=== PATIENT | female | born 1950 | race Caucasian/White ===

== ENCOUNTER 2019-10-07 13:41 | Inpatient (IN) ==
[2019-10-07] MEDS ORDERED: NS 0.9% 1000 ml BAG 1,000 ML IV ONE ×2 (13:53→14:07)
[2019-10-07 14:01] LABS: Hematocrit 40 % (35-47); Hemoglobin 13.5 g/dL (12.0-16.0); Mean Corpuscular HGB Conc 34 g/dL (31-36); Mean Corpuscular Hemoglobin 32 pg (27-31); Mean Corpuscular Volume 96 fL (80-97); Mean Platelet Volume 7.9 fL (7.4-10.4); Platelet Count 157 10^3/uL (150-450); Red Cell Distribution Width 14 % (10-15); White Blood Count 15.3 10^3/uL (3.5-10.8)
[2019-10-07 14:41] LABS: ABS Lymphocytes 0.5 10^3/ul (1.0-4.8); ABS Monocytes 0.8 10^3/ul (0-0.8); Lymphocyte % 3.6 %
[2019-10-07 14:47] LABS: Albumin 4.3 g/dL (3.2-5.2); Albumin/Globulin Ratio 1.6 (1-3); BUN/Creatinine Ratio 14.9 (8-20); Calcium 9.7 mg/dL (8.6-10.3); EGFR African American 33.7 (>60); EGFR Non-African American 27.9 (>60); Globulin 2.7 g/dL (2-4); Magnesium 2.2 mg/dL (1.9-2.7); Total Bilirubin 1.5 mg/dL (0.2-1.0)
[2019-10-07 14:50] LABS: Urine Appearance Cloudy; Urine Bilirubin Negative (Negative); Urine Blood 3+ (Negative); Urine Color Amber; Urine Glucose Negative (Negative); Urine Ketones 1+ (Negative); Urine Nitrite Negative (Negative); Urine Protein 2+(100 mg/dL) (Negative); Urine Urobilinogen Negative (Negative)
[2019-10-07 15:21] LABS: Urine Bacteria Absent (Absent); Urine Granular Casts Present (Absent); Urine Red Blood Cell Trace(0-2/hpf) (Absent); Urine Squamous Epithelial Cell Present (Absent); Urine White Blood Cell Absent (Absent)
[2019-10-07] MEDS ORDERED: NS 0.9% 1000 ml BAG 1,000 ML IV SCH (15:30)
[2019-10-07] MEDS: Enoxaparin 40 MG/0.4 ML SYR SUBCUT SCH (19:36)
[2019-10-08 09:42] LABS: Hematocrit 40 % (35-47); Hemoglobin 13.5 g/dL (12.0-16.0); Mean Corpuscular HGB Conc 34 g/dL (31-36); Mean Corpuscular Hemoglobin 32 pg (27-31); Mean Corpuscular Volume 95 fL (80-97); Mean Platelet Volume 7.8 fL (7.4-10.4); Platelet Count 135 10^3/uL (150-450); Red Blood Count 4.18 10^6 /uL (3.70-4.87); Red Cell Distribution Width 14 % (10-15); White Blood Count 10.3 10^3/uL (3.5-10.8)
[2019-10-08 09:53] LABS: BUN/Creatinine Ratio 23.3 (8-20); Calcium 9.2 mg/dL (8.6-10.3); EGFR African American 56.4 (>60); EGFR Non-African American 46.6 (>60); Potassium 3.9 mmol/L (3.5-5.0)
[2019-10-08] MEDS ORDERED: Lactated Ringers 1000 ml BAG 1,000 ML IV SCH (11:00)
[2019-10-08] MEDS: Enoxaparin 40 MG/0.4 ML SYR SUBCUT SCH (17:12)
[2019-10-09] MEDS: Enoxaparin 40 MG/0.4 ML SYR SUBCUT SCH (18:23)
[2019-10-10] MEDS: Enoxaparin 40 MG/0.4 ML SYR SUBCUT SCH (18:38)
[2019-10-11] MEDS: Enoxaparin 40 MG/0.4 ML SYR SUBCUT SCH (17:49)
[2019-10-12] MEDS: Enoxaparin 40 MG/0.4 ML SYR SUBCUT SCH (18:44)
[2019-10-13 16:37] LABS: Free Testosterone ng/dl 0.37 ng/dL (0.06-0.84)
[2019-10-13] MEDS: Enoxaparin 40 MG/0.4 ML SYR SUBCUT SCH (17:21)
[2019-10-13] MEDS ORDERED: Magnesium Hydroxide LIQ 30 ML UDC PO ONE (20:28)
[2019-10-14] MEDS ORDERED: Magnesium Hydroxide LIQ 30 ML UDC PO PRN (10:22)
[2019-10-14] MEDS ORDERED: Senna TAB 8.6 mg TAB PO PRN (10:22)
[2019-10-14] MEDS: Enoxaparin 40 MG/0.4 ML SYR SUBCUT SCH (17:15)
[2019-10-14] MEDS ORDERED: Alteplase (CATHFLO) 2 MG VIAL ONE (22:00)
[2019-10-15] MEDS: Polyethylene Glycol 3350 17 GM PACKET PO SCH (10:38)
[2019-10-15] MEDS: Enoxaparin 40 MG/0.4 ML SYR SUBCUT SCH (17:17)
[2019-10-16] MEDS: Polyethylene Glycol 3350 17 GM PACKET PO SCH (10:36)
[2019-10-16 13:12] LABS: Urine Appearance Cloudy; Urine Bilirubin Negative (Negative); Urine Blood Negative (Negative); Urine Color Yellow; Urine Glucose Negative (Negative); Urine Ketones Negative (Negative); Urine Nitrite Negative (Negative); Urine Protein Negative (Negative); Urine Specific Gravity 1.018 (1.010-1.030); Urine Urobilinogen Negative (Negative)
[2019-10-16] MEDS: Enoxaparin 40 MG/0.4 ML SYR SUBCUT SCH (17:02)
[2019-10-17] MEDS: Polyethylene Glycol 3350 17 GM PACKET PO SCH (08:33)
[2019-10-17] MEDS: Enoxaparin 40 MG/0.4 ML SYR SUBCUT SCH (16:05)
[2019-10-18] MEDS: Polyethylene Glycol 3350 17 GM PACKET PO SCH (07:58)
[2019-10-18] MEDS: Enoxaparin 40 MG/0.4 ML SYR SUBCUT SCH (16:48)
[2019-10-19 06:36] LABS: Mean Platelet Volume 7.3 fL (7.4-10.4); Platelet Count 187 10^3/uL (150-450)
[2019-10-19] MEDS: Polyethylene Glycol 3350 17 GM PACKET PO SCH (08:44)
[2019-10-19] MEDS: Enoxaparin 40 MG/0.4 ML SYR SUBCUT SCH (17:23)
[2019-10-20] MEDS: Polyethylene Glycol 3350 17 GM PACKET PO SCH (09:40)
[2019-10-20] MEDS: Enoxaparin 40 MG/0.4 ML SYR SUBCUT SCH (16:51)
[2019-10-21 07:43] LABS: EGFR Non-African American 83.5 (>60)
[2019-10-21] MEDS: Polyethylene Glycol 3350 17 GM PACKET PO SCH (08:44)
[2019-10-21] MEDS: Enoxaparin 40 MG/0.4 ML SYR SUBCUT SCH (16:46)
[2019-10-22] MEDS: Polyethylene Glycol 3350 17 GM PACKET PO SCH (08:27)
[2019-10-22] MEDS: Enoxaparin 40 MG/0.4 ML SYR SUBCUT SCH (19:11)
[2019-10-23] MEDS: Polyethylene Glycol 3350 17 GM PACKET PO SCH (08:56)
[2019-10-23] MEDS: Enoxaparin 40 MG/0.4 ML SYR SUBCUT SCH (16:43)
[2019-10-24] MEDS: Polyethylene Glycol 3350 17 GM PACKET PO SCH (12:05)
[2019-10-24] MEDS: Enoxaparin 40 MG/0.4 ML SYR SUBCUT SCH (18:19)
[2019-10-25] MEDS: Polyethylene Glycol 3350 17 GM PACKET PO SCH (08:41)
[2019-10-25] MEDS: Enoxaparin 40 MG/0.4 ML SYR SUBCUT SCH (16:54)
[2019-10-26] MEDS: Polyethylene Glycol 3350 17 GM PACKET PO SCH (08:17)
[2019-10-26] MEDS: Enoxaparin 40 MG/0.4 ML SYR SUBCUT SCH (17:29)
[2019-10-27] MEDS: Polyethylene Glycol 3350 17 GM PACKET PO SCH (09:03)
[2019-10-27] MEDS: Enoxaparin 40 MG/0.4 ML SYR SUBCUT SCH (17:10)
[2019-10-28] MEDS: Polyethylene Glycol 3350 17 GM PACKET PO SCH (07:34)
[2019-10-28] MEDS: Enoxaparin 40 MG/0.4 ML SYR SUBCUT SCH (17:21)
[2019-10-29] MEDS ORDERED: Polyethylene Glycol 3350 17 GM PACKET PO PRN (02:11)
[2019-10-29 07:11] LABS: ABS Eosinophils 0.1 10^3/ul (0-0.6); ABS Monocytes 0.6 10^3/ul (0-0.8); Eosinophil % 1.3 %; Hematocrit 38 % (35-47); Hemoglobin 13.3 g/dL (12.0-16.0); Lymphocyte % 11.8 %; Mean Corpuscular HGB Conc 35 g/dL (31-36); Mean Corpuscular Hemoglobin 34 pg (27-31); Mean Corpuscular Volume 95 fL (80-97); Platelet Count 166 10^3/uL (150-450); Red Blood Count 3.97 10^6 /uL (3.70-4.87); Red Cell Distribution Width 14 % (10-15); White Blood Count 8.3 10^3/uL (3.5-10.8)
[2019-10-29 07:20] LABS: BUN/Creatinine Ratio 23.7 (8-20); EGFR African American 91.8 (>60); EGFR Non-African American 75.9 (>60); Magnesium 1.8 mg/dL (1.9-2.7); Potassium 3.8 mmol/L (3.5-5.0)
[2019-10-29] MEDS ORDERED: Magnesium Sulfate 2 gm BAG 2 GM/50 ML BAG IVPB ONE (09:30)
[2019-10-29] MEDS: Enoxaparin 40 MG/0.4 ML SYR SUBCUT SCH (17:38)
[2019-10-29 18:33] LABS: Total Bilirubin 0.6 mg/dL (0.2-1.0)
[2019-10-30 09:08] LABS: Magnesium 1.9 mg/dL (1.9-2.7)
[2019-10-30] MEDS: Enoxaparin 40 MG/0.4 ML SYR SUBCUT SCH (16:31)
[2019-10-31] MEDS: Enoxaparin 40 MG/0.4 ML SYR SUBCUT SCH (17:31)
[2019-11-01] MEDS: Enoxaparin 40 MG/0.4 ML SYR SUBCUT SCH (17:35)
[2019-11-02 12:07] LABS: Urine Appearance Turbid; Urine Bilirubin Negative (Negative); Urine Blood 3+ (Negative); Urine Color Yellow; Urine Glucose Negative (Negative); Urine Ketones Negative (Negative); Urine Nitrite Negative (Negative); Urine Protein 2+(100 mg/dL) (Negative); Urine Specific Gravity 1.021 (1.010-1.030); Urine Urobilinogen Positive (Negative)
[2019-11-02 12:10] LABS: Urine Bacteria Absent (Absent); Urine Red Blood Cell 3+(>10/hpf) (Absent); Urine Squamous Epithelial Cell Present (Absent); Urine White Blood Cell 3+(>20/hpf) (Absent)
[2019-11-02] MEDS: Enoxaparin 40 MG/0.4 ML SYR SUBCUT SCH (17:08)
[2019-11-02 20:19] LABS: ABS Eosinophils 0.2 10^3/ul (0-0.6); ABS Lymphocytes 1.5 10^3/ul (1.0-4.8); ABS Monocytes 0.7 10^3/ul (0-0.8); Eosinophil % 2.8 %; Hematocrit 35 % (35-47); Hemoglobin 12.1 g/dL (12.0-16.0); Lymphocyte % 23.7 %; Mean Corpuscular HGB Conc 34 g/dL (31-36); Mean Corpuscular Hemoglobin 33 pg (27-31); Mean Corpuscular Volume 96 fL (80-97); Mean Platelet Volume 7.3 fL (7.4-10.4); Nucleated Red Blood Cells % 0.1; Platelet Count 141 10^3/uL (150-450); Red Blood Count 3.71 10^6 /uL (3.70-4.87); Red Cell Distribution Width 14 % (10-15); White Blood Count 6.2 10^3/uL (3.5-10.8)
[2019-11-03] MEDS: Enoxaparin 40 MG/0.4 ML SYR SUBCUT SCH (17:36)
[2019-11-04] MEDS: Enoxaparin 40 MG/0.4 ML SYR SUBCUT SCH (16:59)
[2019-11-05] MEDS: Enoxaparin 40 MG/0.4 ML SYR SUBCUT SCH (16:57)
[2019-11-06 06:59] LABS: EGFR Non-African American 83.5 (>60)
[2019-11-06] MEDS: Enoxaparin 40 MG/0.4 ML SYR SUBCUT SCH (16:34)
[2019-11-06] MEDS: Amoxicillin/Clavul 500/125 TAB (Augmentin 500 mg tab) PO SCH (21:33)
[2019-11-07] MEDS: Amoxicillin/Clavul 500/125 TAB (Augmentin 500 mg tab) PO SCH ×2 (09:08→21:41)
[2019-11-07] MEDS ORDERED: Enoxaparin 40 MG/0.4 ML SYR SUBCUT SCH (21:00)
[2019-11-08 07:54] VITALS: BP 150/72
[2019-11-08] MEDS: Amoxicillin/Clavul 500/125 TAB (Augmentin 500 mg tab) PO SCH (08:03)
== END 2019-11-08 14:30 | DRG 885 ==
LOC: ED 13:41 → MED 13:41
PROVIDERS: ADMIT Internal Medicine; ATTEND Internal Medicine

== ENCOUNTER 2020-03-06 01:06 | Inpatient (IN) ==
[2020-03-06 08:58] LABS: ABS Basophils 0.1 10^3/ul (0-0.2); ABS Eosinophils 0.1 10^3/ul (0-0.6); ABS Monocytes 0.4 10^3/ul (0-0.8); ABS Neutrophils 4.8 10^3/ul (1.5-7.7); Eosinophil % 1.6 %; Hematocrit 40 % (35-47); Hemoglobin 13.6 g/dL (12.0-16.0); Mean Corpuscular HGB Conc 34 g/dL (31-36); Mean Corpuscular Hemoglobin 32 pg (27-31); Mean Corpuscular Volume 93 fL (80-97); Mean Platelet Volume 7.7 fL (7.4-10.4); Platelet Count 160 10^3/uL (150-450); Red Blood Count 4.29 10^6 /uL (3.70-4.87); Red Cell Distribution Width 14 % (10-15); White Blood Count 6.5 10^3/uL (3.5-10.8)
[2020-03-06 09:05] LABS: INR 1.07 (0.82-1.09)
[2020-03-06 09:14] LABS: Albumin 3.8 g/dL (3.2-5.2); Albumin/Globulin Ratio 1.5 (1-3); BUN/Creatinine Ratio 15.9 (8-20); C Reactive Protein 1.13 mg/L (<8.01); Calcium 8.8 mg/dL (8.6-10.3); EGFR African American 102.4 (>60); EGFR Non-African American 84.6 (>60); Globulin 2.5 g/dL (2-4); Potassium 3.1 mmol/L (3.5-5.0); Total Bilirubin 0.8 mg/dL (0.2-1.0); Total Protein 6.3 g/dL (6.4-8.9)
[2020-03-06] MEDS ORDERED: Morphine 2 MG/ML SYRINGE IV PRN (13:13)
[2020-03-06] MEDS ORDERED: Ondansetron 4 mg VIAL 2 MG/ML 2 ml VIAL IV PRN (13:18)
[2020-03-06] MEDS ORDERED: Labetalol IV 5 MG/ML 20 ml VIAL IV PUSH PRN (13:47)
[2020-03-06] MEDS: KCL 20 MEQ/100 ML IVPREMIX 20 MEQ/100 ML BAG IV SCH ×3 (14:57→21:14)
[2020-03-06 18:22] LABS: Urine Appearance Cloudy; Urine Bilirubin Negative (Negative); Urine Blood Negative (Negative); Urine Color Yellow; Urine Glucose Negative (Negative); Urine Ketones Negative (Negative); Urine Nitrite Negative (Negative); Urine Protein Negative (Negative); Urine Specific Gravity 1.009 (1.010-1.030); Urine Urobilinogen Negative (Negative)
[2020-03-06] MEDS: NS 0.9% 1000 ml BAG 1,000 ML IV SCH (20:39)
[2020-03-06] MEDS: Heparin 5000 UNITS/ML 1 mL VIAL SUBCUT SCH (22:00)
[2020-03-07 05:03] LABS: ABS Basophils 0.1 10^3/ul (0-0.2); ABS Eosinophils 0.2 10^3/ul (0-0.6); ABS Lymphocytes 1.1 10^3/ul (1.0-4.8); ABS Monocytes 0.5 10^3/ul (0-0.8); ABS Neutrophils 4.6 10^3/ul (1.5-7.7); Eosinophil % 2.6 %; Hematocrit 40 % (35-47); Hemoglobin 13.6 g/dL (12.0-16.0); Lymphocyte % 17.8 %; Mean Corpuscular HGB Conc 34 g/dL (31-36); Mean Corpuscular Hemoglobin 31 pg (27-31); Mean Corpuscular Volume 93 fL (80-97); Mean Platelet Volume 7.4 fL (7.4-10.4); Nucleated Red Blood Cells % 0.1; Platelet Count 150 10^3/uL (150-450); Red Blood Count 4.34 10^6 /uL (3.70-4.87); Red Cell Distribution Width 14 % (10-15); White Blood Count 6.5 10^3/uL (3.5-10.8)
[2020-03-07 05:17] LABS: Albumin 3.8 g/dL (3.2-5.2); Albumin/Globulin Ratio 1.5 (1-3); BUN/Creatinine Ratio 13.1 (8-20); Calcium 8.7 mg/dL (8.6-10.3); EGFR Non-African American 97.5 (>60); Globulin 2.5 g/dL (2-4); Potassium 3.3 mmol/L (3.5-5.0); Total Protein 6.3 g/dL (6.4-8.9)
[2020-03-07] MEDS: Heparin 5000 UNITS/ML 1 mL VIAL SUBCUT SCH ×3 (06:10→21:26)
[2020-03-07] MEDS: NS 0.9% 1000 ml BAG 1,000 ML IV SCH (10:18)
[2020-03-08] MEDS: NS 0.9% 1000 ml BAG 1,000 ML IV SCH (00:02)
[2020-03-08] MEDS: Heparin 5000 UNITS/ML 1 mL VIAL SUBCUT SCH ×3 (06:15→21:48)
[2020-03-08] MEDS ORDERED: KCL 20 MEQ/100 ML IVPREMIX 20 MEQ/100 ML BAG IV ONE (08:00)
[2020-03-09] MEDS: Heparin 5000 UNITS/ML 1 mL VIAL SUBCUT SCH (05:31)
[2020-03-09 06:11] LABS: ABS Basophils 0.1 10^3/ul (0-0.2); ABS Eosinophils 0.3 10^3/ul (0-0.6); ABS Lymphocytes 1.2 10^3/ul (1.0-4.8); ABS Monocytes 0.5 10^3/ul (0-0.8); ABS Neutrophils 4.4 10^3/ul (1.5-7.7); Hematocrit 40 % (35-47); Hemoglobin 13.6 g/dL (12.0-16.0); Lymphocyte % 18.5 %; Mean Corpuscular HGB Conc 34 g/dL (31-36); Mean Corpuscular Hemoglobin 31 pg (27-31); Mean Corpuscular Volume 93 fL (80-97); Mean Platelet Volume 8.3 fL (7.4-10.4); Nucleated Red Blood Cells % 0.1; Platelet Count 156 10^3/uL (150-450); Red Blood Count 4.35 10^6 /uL (3.70-4.87); Red Cell Distribution Width 15 % (10-15); White Blood Count 6.3 10^3/uL (3.5-10.8)
[2020-03-09 06:30] LABS: BUN/Creatinine Ratio 20.6 (8-20); Calcium 8.9 mg/dL (8.6-10.3); EGFR African American 104.1 (>60)
[2020-03-09 07:32] VITALS: BP 159/77
[2020-03-09] MEDS ORDERED: Potassium Chlor 20 meq TAB.ER PO ONE (08:51)
[2020-03-09] MEDS ORDERED: Potassium Chloride LIQUID 20 MEQ/15 ML LIQUID PO ONE (08:53)
[2020-03-09] MEDS: KCL 20 MEQ/100 ML IVPREMIX 20 MEQ/100 ML BAG IV SCH ×2 (09:24→11:34)
[2020-03-10] MEDS ORDERED: Potassium Chloride LIQUID 20 MEQ/15 ML LIQUID PO SCH (09:00)
== END 2020-03-09 14:25 ==
LOC: ED 01:06 → SSU 12:04
PROVIDERS: ADMIT Pediatrics; ATTEND Student in an Organized Health Care Education/Training Program